=== PATIENT | female | born 1970 | race Caucasian/White ===

== ENCOUNTER 2018-09-08 02:46 | Inpatient (IN) ==
[2018-09-08] MEDS ORDERED: Ipratropium/Albuterol Neb 3 ML IH ONE (05:32)
[2018-09-08] MEDS ORDERED: Naloxone 0.4 MG/ML INJ IVP PRN (06:23)
[2018-09-08] MEDS ORDERED: Nicotine 21 MG PATCH.TD24 TD PRN (06:27)
[2018-09-08] MEDS ORDERED: Albuterol 2.5 MG/3 ML NEBULIZER IH PRN (06:27)
--- NOTE | 2018-09-08 06:43 | Internal Med History&Physical ---
Date of Encounter: 09/08/18 Time of Encounter: 06:16 Internal Medicine - H&P: HPI Chief complaint: COPD exacerbation Admitted From: Emergency Dept Plans for Post Hospital Care: Home History of present illness: Ms. Arshad is a 47 year old female Patient presented to the [facility] emergency room department after worsening shortness of breath. She says that her symptoms initially began 3 months ago and have been progressively worsening. Today however Her breathing acutely worsened as she been outside in the heat and not staying hydrated. She is a chronic smoker and smokes 1-2 packs of cigarettes daily. She denies other medical problems, does not require oxygen at home. She came to the emergency department for further evaluation. [facility] vital signs: Blood pressure 167/89, temperature 98.7, pulse 118, respiratory rate 20, 90% oxygen on room air. CBC: White count 12.77, hemoglobin 13.8, hematocrit 42.3, platelets 298 BMP: Sodium 145, potassium 3.8, chloride 112, CO2 23, BUN 13, glucose 118, creatinine 1.02, calcium 8.7. D-dimer 467 APTT 32.6 Prothrombin time 11.7 INR 0.98 Troponin undetectable BNP 109 Lactic acid 1.4 ABG: PH 7.408, PCO2 31.7, PO2 47.4, bicarbonate 19.6. Repeat ABG: PH 7.33, PCO2 36.9, PO2 67.5, bicarbonate 19.1. EKG: Sinus tach, rate 118, QTC 441ms, no ischemic changes. CT angiogram of the chest was obtained, results not available but reported from the emergency room to be negative PE, but did show left upper lobe infiltrate. Chest x-ray reportedly showed no acute abnormalities. At the [facility] emergency room department blood cultures and sputum cultures were obtained, patient was given albuterol breathing treatment 4, 125 mg of IV steroids, 1 L of IV fluids, 1 mg of Ativan for anxiety, 20% acetylcysteine Mucomyst inhaler, budesonide inhaler, epinephrine inhaler. She was given a dose of ceftriaxone at around 3 AM on 09/08/18 according to the documentation, and transferred to [facility] for further evaluation. Upon my evaluation, patient is resting comfortably in the hospital bed in mild distress secondary to shortness of breath. She received a breathing treatment upon her arrival. She says that it helped a little bit, but she still feels there is a lot of sputum remaining. He is able to speak in full sentences during my interview, but does have shortness of breath. She denies chest pain, abdominal pain, nausea, vomiting, diarrhea and constipation. She is a full code. She denies significant family medical history. Past Med Surg Social Fam HX - Past Medical History Medical history: no medical history - Social History Smoking Status: Current every day smoker Internal Medicine - H&P: Meds Albuterol Sulfate [Proair Hfa] 1 puff IH 4-6XD PRN 09/08/18 [History] Allergy/AdvReac Type Severity Reaction Status Date / Time No Known Allergies Allergy Verified 09/08/18 05:16 All Systems PM: A 10-system review of systems was performed and is negative for pertinent findings except as documented above in the HPI. - Constitutional Vitals: Temp Pulse Resp BP Pulse Ox 99 F 121 23 115/84 92 09/08/18 05:42 09/08/18 05:42 09/08/18 05:42 09/08/18 05:42 09/08/18 05:42 General appearance: Present: cooperative, mild distress, A&O X 3, pleasant, answers questions appropriately Exam: - - Head Head exam: Present: normal inspection - Eye Eye exam: Present: EOMI, normal appearance - Respiratory Respiratory exam: Present: respiratory distress, wheezes. Absent: decreased breath sounds, CTAB, rales, rhonchi - Cardiovascular Cardiovascular exam: Present: tachycardia. Absent: diastolic murmur, systolic murmur - GI/Abdominal GI/Abdominal exam: Present: normal bowel sounds, soft. Absent: tenderness - Extremities Exam Extremities exam: Present: warm, radial pulses palpable and symmetrical. Absent: calf tenderness, pedal edema, tenderness - Neurological Exam Neurological exam: Present: no focal deficits, strengths equal and symetr throughout. Absent: motor sensory deficit, facial droop, speech deficit - Skin Skin exam: Present: dry, normal color, warm - Assessment and Plan (1) Acute respiratory failure with hypoxia Current Visit: Yes Status: Acute Assessment and plan: Secondary to COPD exacerbation and pneumonia. Patient has received breathing treatments, IV steroids and mucolytics. Continue supplemental oxygen Bedside pulse oximeter Continue IV antibiotics for pneumonia Continue breathing treatments Continue IV steroids (2) COPD exacerbation Current Visit: Yes Status: Acute Assessment and plan: Secondary to history of smoking and pneumonia. Continue oxygen supplementation IV antibiotics Continue breathing treatments Continue IV steroids (3) Left upper lobe pneumonia Current Visit: Yes Status: Acute Assessment and plan: As seen on CT angiogram of the chest. Blood cultures and sputum cultures obtained at [facility]. Follow-up culture results Continue ceftriaxone, and azithromycin Monitor for worsening signs of infection Oxygen supplementation Qualifiers: Pneumonia type: due to unspecified organism Qualified Code(s): J18.1 - Lobar pneumonia, unspecified organism (4) Nicotine use disorder Current Visit: Yes Status: Acute Assessment and plan: Nicotine patch as needed (5) DVT prophylaxis Current Visit: Yes Status: Acute Assessment and plan: Subcutaneous heparin - Time Spent With Patient Total time spent is greater than 50% in coordination of care (as documented) at patient's floor/unit and/or counseling patient: Greater than 35 minutes
[2018-09-08 07:15] LABS: Hematocrit 41.2 % (35.3-44.9); Hemoglobin 13.2 g/dL (11.5-15.4); Mean Corpuscular Hemoglobin 29.2 pg (28.0-33.3); Mean Corpuscular Volume 91.2 fL (83.0-100.0); Mean Platelet Volume 10.8 fL (9.4-12.4); Platelet Count 276 K/mcL (140-400); Red Blood Count 4.52 M/mcL (3.82-4.97); Red Cell Distribution Width 13.6 % (11.5-14.5); White Blood Count 12.3 K/mcL (4.3-11.1)
[2018-09-08 07:31] LABS: Alanine Aminotransferase 16 Units/L (7-52); Albumin/Globulin Ratio 1.2 (1.1-2.2); Alkaline Phosphatase 79 Units/L (34-104); Aspartate Amino Transferase 15 Units/L (13-39); BUN/Creatinine Ratio 11 (6-26); Bilirubin,Total 0.2 mg/dL (0.3-1.0); Blood Urea Nitrogen 10 mg/dL (6-20); Calcium 9.1 mg/dL (8.6-10.3); Carbon Dioxide 22 mEq/L (23-29); Chloride 108 mEq/L (98-107); Chol/HDL Ratio 2.2 (0-4.9); Cholesterol 132 mg/dL (< 200); Globulin 3.4 g/dL (2.4-3.5); Glucose 192 mg/dL (70-105); HDL Cholesterol 59 mg/dL (40-59); LDL Cholesterol,Calculated 67 mg/dL (0-99); Magnesium 1.9 mg/dL (1.6-2.6); Osmolality,Calculated 298 (280-300); Phosphorous 2.7 mg/dL (2.7-4.5); Potassium 3.9 mEq/L (3.5-5.1); Sodium 142 mEq/L (136-145); Total Protein 7.4 g/dL (6.4-8.9); Triglycerides 32 mg/dL (< 150); eGFR For African Americans > 60 (> 60); eGFR For Non-African Americans > 60 (> 60)
[2018-09-08] MEDS: Azithromycin 500 MG in D5% in Water 250 ML IVPB SCH (07:31)
[2018-09-08] MEDS: 0.9 % Sodium Chloride 1,000 ML IVC SCH ×2 (07:32→17:19)
[2018-09-08] MEDS: cefTRIAXone 1,000 MG in Water for inj. (sterile) 10 ML IVP SCH (10:15)
[2018-09-08] MEDS ORDERED: Ipratropium/Albuterol Neb 3 ML IH SCH ×2 (11:00→16:00)
[2018-09-08] MEDS: MethylPREDNISolone 40 MG/ML VIAL IVP SCH ×2 (12:26→17:18)
--- NOTE | 2018-09-08 14:28 | Event Note ---
Date of Encounter: 09/08/18 Time of Encounter: 09:00 H & P reviewed. Pt was seen in the morning, was much mopre comfortable but stilll SOB. Has diffused wheezing. We will cotninue the antibiotics, sterodis and the breathing treatments. Cont to follow up
[2018-09-08] MEDS ORDERED: Acetaminophen 325 MG TABLET PO PRN (17:06)
[2018-09-08] MEDS: *HR* Heparin 5,000 UNIT/ML VIAL SQ SCH (17:18)
[2018-09-08] MEDS: Levalbuterol Neb 1.25 MG/3 ML IH SCH (22:35)
[2018-09-09] MEDS: MethylPREDNISolone 40 MG/ML VIAL IVP SCH ×3 (00:28→17:29)
[2018-09-09] MEDS: Levalbuterol Neb 1.25 MG/3 ML IH SCH ×4 (03:22→22:53)
[2018-09-09] MEDS: Azithromycin 500 MG in D5% in Water 250 ML IVPB SCH (05:15)
[2018-09-09] MEDS: *HR* Heparin 5,000 UNIT/ML VIAL SQ SCH ×2 (05:18→17:28)
[2018-09-09] MEDS: cefTRIAXone 1,000 MG in Water for inj. (sterile) 10 ML IVP SCH (07:40)
[2018-09-09] MEDS: Famotidine 20 MG TABLET PO SCH ×2 (09:52→20:51)
[2018-09-09 10:50] LABS: Basophils % 0.1 %; Hematocrit 40.5 % (35.3-44.9); Hemoglobin 13.1 g/dL (11.5-15.4); Immature Granulocytes % 0.7 % (0-4); Lymphocytes # 0.9 K/mcL (0.6-4.6); Lymphocytes % 4.7 %; Mean Corpuscular HGB Conc 32.3 g/dL (31.6-35.5); Mean Corpuscular Hemoglobin 29.6 pg (28.0-33.3); Mean Corpuscular Volume 91.4 fL (83.0-100.0); Mean Platelet Volume 10.9 fL (9.4-12.4); Monocytes # 0.7 K/mcL (0.0-1.3); Monocytes % 3.9 %; Neutrophils # 16.6 K/mcL (1.6-8.9); Platelet Count 294 K/mcL (140-400); Red Blood Count 4.43 M/mcL (3.82-4.97); Segmented Neutrophils % 90.6 %; White Blood Count 18.3 K/mcL (4.3-11.1)
[2018-09-09 11:09] LABS: BUN/Creatinine Ratio 15 (6-26); Blood Urea Nitrogen 13 mg/dL (6-20); Calcium 9.3 mg/dL (8.6-10.3); Carbon Dioxide 28 mEq/L (23-29); Chloride 105 mEq/L (98-107); Glucose 126 mg/dL (70-105); Osmolality,Calculated 300 (280-300); Potassium 4.4 mEq/L (3.5-5.1); Sodium 144 mEq/L (136-145); eGFR For African Americans > 60 (> 60); eGFR For Non-African Americans > 60 (> 60)
--- NOTE | 2018-09-09 12:56 | Internal Med Progress Note ---
Hospitalist Progress Note - Encounter Date of Encounter: 09/09/18 Time of Encounter: 08:47 - Subjective Interval History: Seen at bedside. Feeling much better than yesterday. Still has some shortness of breath but much comfortable today. Denies fever, chills. Denies chest pain. Still on oxygen 5L with good saturations. - Exam Vitals: Temp Pulse Resp BP Pulse Ox 98.0 F 97 17 137/96 94 09/09/18 12:38 09/09/18 12:38 09/09/18 12:38 09/09/18 12:38 09/09/18 12:38 Exam: General: Alert and oriented, mild physical distress, able to follow commands. HEENT: No thyromegaly, no lymphadenopathy, no discharge. Eyes: No discharge. Respiratory: Bilaerla diffuse wheezing ain all filelds of lungs CVS: Normal heart sounds, no murmurs, no edema. Extremities: No peripheral edema, peripheral pulses intact. Lymph nodes: No lymphadenopathy Gastrointestinal: Soft, nontender abdomen, normal abdominal sounds. No distention noted. Genitourinary: No paravertebral tenderness. Neurological: Alert and oriented. No focal deficits. Cranial nerves II-XII intact. - Assessment and Plan (1) Left upper lobe pneumonia Current Visit: Yes Status: Acute Assessment and Plan: -As seen on CT angiogram of the chest. - Blood cultures and sputum cultures obtained at [facility]. -Continue ceftriaxone, and azithromycin -Mild leucocytosis which can be because of the steroids -Oxygen supplementation (2) Acute respiratory failure with hypoxia Current Visit: Yes Status: Acute Assessment and Plan: Likely a combination of COPD exacerbation and pneumonia. Continue to manage with IV steroids. Continue the IV antibiotics. -Counseled to quit smoking. (3) COPD exacerbation Current Visit: Yes Status: Acute Assessment and Plan: Does not carry a diagnosis of COPD as such. Considering long smoking history, diffuse wheezing, increased sputum production, seems like patient might of COPD. Discharge counseled the patient to follow up with coffee urn attendant as an outpatient -For now, continue the patient IV steroids. -Prefer to discharge on tapering dose of steroids (4) Nicotine use disorder Current Visit: Yes Status: Acute Assessment and Plan: -Counseled to stop smoking -Nicotine patch as needed (5) DVT prophylaxis Current Visit: Yes Status: Acute Assessment and Plan: Subcutaneous heparin - Summary of Assessment and Plan Summary of Assessment and Plan: Anticipate dischrge tomorrow - Time Spent with Patient Total time spent is greater than 50% in coordination of care (as documented) at patient's floor/unit and/or counseling patient: Internal Medicine: Result - Labs CBC & Chem 7: 09/09/18 10:24 09/09/18 10:24 Labs: Short CBC 09/09/18 Range/Units 10:24 WBC 18.3 H (4.3-11.1) K/mcL Hgb 13.1 (11.5-15.4) g/dL Hct 40.5 (35.3-44.9) % Plt Count 294 (140-400) K/mcL Neutrophils # 16.6 H (1.6-8.9) K/mcL BMP 09/09/18 10:24 Sodium 144 Potassium 4.4 Chloride 105 Carbon Dioxide 28 BUN 13 Creatinine 0.84 Glucose 126 H Calcium 9.3 Consult Discharge Plan - Plan Referrals: [facility] [Other] (This is a walk in only Clinic, patient will have to go see when discharged) (1) Left upper lobe pneumonia Qualifiers: Pneumonia type: due to unspecified organism Qualified Code(s): J18.1 - Lobar pneumonia, unspecified organism
[2018-09-10] MEDS: Levalbuterol Neb 1.25 MG/3 ML IH SCH ×2 (04:42→10:25)
[2018-09-10 04:54] LABS: Basophils % 0.1 %; Hematocrit 40.2 % (35.3-44.9); Hemoglobin 12.9 g/dL (11.5-15.4); Immature Granulocytes % 0.5 % (0-4); Lymphocytes # 1.5 K/mcL (0.6-4.6); Lymphocytes % 11.3 %; Mean Corpuscular HGB Conc 32.1 g/dL (31.6-35.5); Mean Corpuscular Hemoglobin 29.5 pg (28.0-33.3); Mean Platelet Volume 10.8 fL (9.4-12.4); Monocytes # 0.7 K/mcL (0.0-1.3); Monocytes % 5.2 %; Neutrophils # 11.1 K/mcL (1.6-8.9); Platelet Count 298 K/mcL (140-400); Red Blood Count 4.37 M/mcL (3.82-4.97); Red Cell Distribution Width 13.9 % (11.5-14.5); Segmented Neutrophils % 82.9 %; White Blood Count 13.3 K/mcL (4.3-11.1)
[2018-09-10 05:14] LABS: BUN/Creatinine Ratio 24 (6-26); Blood Urea Nitrogen 18 mg/dL (6-20); Carbon Dioxide 24 mEq/L (23-29); Chloride 106 mEq/L (98-107); Glucose 112 mg/dL (70-105); Osmolality,Calculated 293 (280-300); Potassium 3.8 mEq/L (3.5-5.1); Sodium 140 mEq/L (136-145); eGFR For African Americans > 60 (> 60); eGFR For Non-African Americans > 60 (> 60)
[2018-09-10] MEDS: MethylPREDNISolone 40 MG/ML VIAL IVP SCH (05:29)
[2018-09-10] MEDS: *HR* Heparin 5,000 UNIT/ML VIAL SQ SCH (05:29)
[2018-09-10] MEDS: Azithromycin 500 MG in D5% in Water 250 ML IVPB SCH (07:21)
[2018-09-10] MEDS: cefTRIAXone 1,000 MG in Water for inj. (sterile) 10 ML IVP SCH (07:26)
[2018-09-10] MEDS: Famotidine 20 MG TABLET PO SCH (07:26)
[2018-09-10 10:20] VITALS: BP 136/88
--- NOTE | 2018-09-10 10:46 | Discharge Summary ---
- NOTES TO OUTPATIENT PROVIDER Notes to Outpatient Provider: Follow with pulmonology for PFT as outpatient Date of Encounter: 09/10/18 Time of Encounter: 07:45 - Discharge Diagnosis (1) COPD exacerbation Priority: Secondary Status: Acute (2) Acute respiratory failure with hypoxia Priority: Primary Status: Acute (3) Nicotine use disorder Priority: Secondary Status: Acute (4) Left upper lobe pneumonia Priority: Secondary Status: Acute Qualifiers: Pneumonia type: due to unspecified organism Qualified Code(s): J18.1 - Lobar pneumonia, unspecified organism (5) DVT prophylaxis Priority: Secondary Status: Acute Hospital course: Ms. Arshad is a 47 year old female with history of tobacco abuse who was admitted for acute hypoxic respiratory failure secondary to left upper lobe pneumonia, complicated by COPD exacerbation. Required as high as 8-10L of oxygen. PE ruled out on CTA. Clinically improved with Galo/Azithromycin and IV solumedrol for 3 days with O2 requirement weaned to room air. She will complete a total of 7 days of antibiotics with oral Augmentin, 5 days of steroid, and with pulmonology follow-up as outpatient for PFT. Smoking cessation encouraged and will be discharged with nicotine patch. Discharge discussed with: patient, nurse - Time Spent with Patient Total time spent providing and/or coordinating discharge services: 31 mins - Discharge Medications Prescriptions: New Amoxicillin/Clavulanate [Augmentin] 875 mg PO BIDWM 4 Days #8 tablet Ipratropium/Albuterol Neb [Duoneb] 3 ml IH Q6HR PRN #90 vial.neb PRN Reason: Shortness Of Breath GuaiFENesin ER [Mucinex] 600 mg PO BID #20 tbbp.12hr Nicotine Patch [Nicoderm] 21 mg TD DAILY PRN #21 patch.[email or web address] PRN Reason: Nicotine Cravings predniSONE [PredniSONE] 40 mg PO DAILY 2 Days #4 tablet Continued Albuterol Sulfate [Proair Hfa] 1 puff IH 4-6XD PRN PRN Reason: Shortness Of Breath/Wheezing raNITIdine HCl [Zantac] 150 mg PO BID Home Medications: Albuterol Sulfate [Proair Hfa] 1 puff IH 4-6XD PRN 09/08/18 [History] raNITIdine HCl [Zantac] 150 mg PO BID 09/09/18 [History] Amoxicillin/Clavulanate [Augmentin] 875 mg PO BIDWM 4 Days #8 tablet 09/10/18 [Rx] GuaiFENesin ER [Mucinex] 600 mg PO BID #20 tbbp.12hr 09/10/18 [Rx] Ipratropium/Albuterol Neb [Duoneb] 3 ml IH Q6HR PRN #90 vial.neb 09/10/18 [Rx] Nicotine Patch [Nicoderm] 21 mg TD DAILY PRN #21 patch.[email or web address] 09/10/18 [Rx] predniSONE [PredniSONE] 40 mg PO DAILY 2 Days #4 tablet 09/10/18 [Rx] Allergies/Adverse Reactions: Allergy/AdvReac Type Severity Reaction Status Date / Time No Known Allergies Allergy Verified 09/09/18 09:29 Date of admission: 09/08/18 06:41 Primary care physician: PCP NONE Consults: 09/08/18 06:27 Consult to Nurse Navigator [CONS] Routine Comment: COPD 09/08/18 08:49 Consult to Nurse Navigator [CONS] Routine Comment: - Constitutional Vitals: Temp Pulse Resp BP Pulse Ox 98.2 F 95 17 136/88 95 09/10/18 10:17 09/10/18 10:17 09/10/18 10:27 09/10/18 10:17 09/10/18 10:27 General appearance: Present: cooperative, mild distress, A&O X 3, pleasant, answers questions appropriately Exam: General: Alert and oriented, not in distress Respiratory: Minimal end expiratory wheezes CVS: Normal heart sounds, no murmurs, no edema. Gastrointestinal: Soft, nontender abdomen, normal abdominal sounds. No distention noted. Extremities: No peripheral edema, peripheral pulses intact. Neurological: Alert and oriented. No focal deficits. Cranial nerves II-XII intact. - Patient Status Disposition: Home, Self-Care Condition: Fair Functional capacity at discharge: independent ambulation Overall status at discharge: patient is progressing back to baseline - Discharge Instructions Instructions: Acute Respiratory Distress Syndrome (DC), Pneumonia (DC), Chronic Obstructive Pulmonary Disease (DC) Follow Up With: [facility] [Other] (This is a walk in only Clinic, patient will have to go see when discharged) Angeli Garcia MD [Partnered Physician] - - Diet and Activity Activity: resume usual activities as tolerated Diet: regular diet
== END 2018-09-10 12:36 | disposition home or self-care (01) | DRG 190 ==
LOC: 2NNU → SUATTDRO 06:41 → 3ANU 09-09 16:12
PROVIDERS: ADMIT Pediatrics; ATTEND Internal Medicine